=== PATIENT | female | born 1990 | race Caucasian/White ===

== ENCOUNTER → 2020-08-15 14:21 | Outpatient (BNVA) | payer OTHER, SELFPAY | PROVIDERS: PCP Internal Medicine Sports Medicine; Visit Provider Internal Medicine Gastroenterology | DX: K20.0 Eosinophilic esophagitis (principal) | CPT/HCPCS: 99202 ==

== ENCOUNTER 2020-09-08 09:13 | Day surgery (SDC) | payer OTHER, SELFPAY ==
--- NOTE | 2020-09-07 08:39 | P.CONAN_ITS ---
Documented by User: Torrie Osborne 09/07/20 08:40 HPI - Anesthesia Eval Consult details Narrative: 30yo F for Upper Endoscopy PMFSH Past Medical History Medical History Anxiety Depression Disease of Bartholin's gland, unspecified (~2014) Family History Family History Father Family history of high blood pressure Mother Family history of high blood pressure Maternal Grandfather History of esophageal cancer Surgical History Surgical History History of ankle surgery History of appendectomy (~2001) History of (~2010) History of (~2018) History of colonoscopy (~2007) Hx of breast lump removal (~2002) Hx of endoscopy Social History Social History Alcohol intake: current Alcohol intake frequency: holidays/special occasions only Smoking Status: Former smoker Use of substances other than those prescribed or required for medical reasons: No Advance Directives: No Advance Directives Information Provided: Yes Current occupational status: employed Current occupation: Works at [employer] [place] Inpatient Psyche with Dr Swanson - Addiction Medicine/substance Meds Allergies Allergy/AdvReac Type Severity Reaction Status Date / Time No Known Allergies Allergy Verified 09/08/20 09:39 [No Known Allergies*] Home Medications Medication Instructions Recorded Confirmed Type bupropion HCl 150 mg tablet,12 hr 150 mg PO DAILY 08/15/20 08/15/20 History sustained-release calcium carbonate 500 mg calcium 500 mg PO BID 08/15/20 08/15/20 History (1,250 mg) chewable tablet cholecalciferol (vitamin D3) 10 10 mcg PO DAILY 08/15/20 08/15/20 History mcg (400 unit) tablet multivitamin 1 tab PO DAILY 08/15/20 08/15/20 History omeprazole 40 mg capsule,delayed 40 mg PO DAILY 08/15/20 08/15/20 History release vortioxetine 20 mg tablet 20 mg PO DAILY 08/15/20 08/15/20 History Exam Exam Date and Time: September 07, 202039 Assessment and Plan Assessment Anesthesia Assessment: Chart Reviewed Documented by User: Jacklyn Mclaughlin 09/08/20 09:58 PMFSH Past Medical History Medical History Anxiety Depression Disease of Bartholin's gland, unspecified (~2014) Family History Family History Father Family history of high blood pressure Mother Family history of high blood pressure Maternal Grandfather History of esophageal cancer Surgical History Surgical History History of ankle surgery History of appendectomy (~2001) History of (~2010) History of (~2018) History of colonoscopy (~2007) Hx of breast lump removal (~2002) Hx of endoscopy Social History Social History Alcohol intake: current Alcohol intake frequency: holidays/special occasions only Smoking Status: Former smoker Use of substances other than those prescribed or required for medical reasons: No Advance Directives: No Advance Directives Information Provided: Yes Current occupational status: employed Current occupation: Works at [employer] [place] Inpatient Psyche with Dr Swanson - Addiction Medicine/substance Meds Allergies Allergy/AdvReac Type Severity Reaction Status Date / Time No Known Allergies Allergy Verified 09/08/20 09:39 [No Known Allergies*] Home Medications Medication Instructions Recorded Confirmed Type bupropion HCl 150 mg tablet,12 hr 150 mg PO DAILY 08/15/20 08/15/20 History sustained-release calcium carbonate 500 mg calcium 500 mg PO BID 08/15/20 08/15/20 History (1,250 mg) chewable tablet cholecalciferol (vitamin D3) 10 10 mcg PO DAILY 08/15/20 08/15/20 History mcg (400 unit) tablet multivitamin 1 tab PO DAILY 08/15/20 08/15/20 History omeprazole 40 mg capsule,delayed 40 mg PO DAILY 08/15/20 08/15/20 History release vortioxetine 20 mg tablet 20 mg PO DAILY 08/15/20 08/15/20 History Exam Airway Mallampati Class: II TM Dist: >3cm Neck ROM: Full
[2020-09-08 09:39] LABS: UPreg QC Valid YES; Urine Pregnancy NEGATIVE (NEGATIVE)
[2020-09-08 09:41] VITALS: BP 119/76; PULSE 79; RESP 18; TEMP 36.1; O2SAT 98; BMI 27.4
[2020-09-08] MEDS: Lactated Ringers 1,000 ML 100 ML IVCONT (09:57)
--- NOTE | 2020-09-08 10:00 | PM.OP ---
Brief Operative Note Date of Service: 09/08/20 Pre-op diagnosis: Dysphagia, atypical chest pain, known history of EOE Post-op diagnosis: other (Dysphagia, EOE, gastritis) Procedure: FLEXIBLE TRANSORAL UPPER GASTROINTESTINAL ENDOSCOPY WITH BIOPSIES AND ESOPHAGEAL BALLOON DILATION Consent: Indications for the procedure and potential complications of bleeding, perforation, reaction to medications and missed diagnosis were discussed with the patient and informed consent was obtained. Instrument: Olympus GIF H 190 mid size upper endoscope Monitoring: Vital signs and clinical assessment, continuous EKG monitoring, Pulse oximetry, Carbon Dioxide monitoring and blood pressure monitoring were done throughout the procedure. Procedure: The patient was placed in the left lateral decubitis position and pre-procedure medications were administered and a bite block was placed. The endoscope was inserted into the mouth and advanced under direct vision to the third part of duodenum. A careful inspection was made as the upper endoscope was withdrawn including a retroflexed examination of the proximal stomach; Findings and interventions are described below. Findings: Larynx: Normal Esophagus: GE junction at 36 cms. Mucosal changes in the mid and distal esophagus consisting of transverse folds, longitudinal ridges with scant white exudate - biopsies were obtained from proximal esophagus to follow up on EOE. Mid-size upper endoscope was passed to the esophagus with the out significant resistance. Balloon dilation of mid and distal esophagus was performed with a 15, 16.5 and 18 mm CRE balloon x 60 seconds at each level. Stomach: Mild gastric erythema. Biopsies were obtained. Grade 1 flap valve on retroflexed examination of the cardia. Duodenum: Normal bulb and descending duodenum Intervention: Biopsies as noted above Impression and Post Procedure Diagnosis: Endoscopy Findings: ESOPHAGUS: GE junction at 36 cms. Mucosal changes in the mid and distal esophagus consisting of transverse folds, longitudinal ridges with scant white exudate - biopsies were obtained from proximal esophagus to follow up on EOE. Mid-size upper endoscope was passed to the esophagus with the out significant resistance. Balloon dilation of mid and distal esophagus was performed with a 15, 16.5 and 18 mm CRE balloon x 60 seconds at each level. STOMACH: Minimal gastritis Plan: Await pathology results Patient to schedule a FU appointment in the GI Clinic with Luis Alberto Love M.D.-. Above findings were reviewed with the patient. Surgeon: Luis Alberto Love MD Anesthesia: MAC (VENEER SANDER Cuff) Estimated blood loss (mL): 0 Pathology: other (A. Gastric antrum, B. Proximal esophagus) Condition: stable Disposition: PACU
--- NOTE | 2020-09-08 10:00 | MHC.SHP ---
Pre-Procedural Eval Section A The patient is an INPATIENT: No Changes since office visit: Yes Patient answered all questions; No Cold of Flu in the past 2 weeks, No New Medical Problems and No Changes in Medication The History & Physical has been completed within 30 days and I have reviewed it.: Yes Section B Chief Complaint: eosinophilic esophagitis Allergies: Allergies Allergy/AdvReac Type Severity Reaction Status Date / Time No Known Allergies Allergy Verified 09/08/20 09:39 [No Known Allergies*] Plan I have reviewed the history and physical and performed a pertinent physical examination on my patient. No changes have occurred unless specified.
[2020-09-08 10:32] VITALS: BP 110/69; PULSE 70; RESP 18; TEMP 37.3; O2SAT 100
[2020-09-08 10:47] VITALS: BP 113/77; PULSE 81; RESP 17; TEMP 36.6; O2SAT 100
== END 2020-09-08 10:54 | disposition home or self-care (01) ==
PROVIDERS: Nurse Practitioner; PCP Internal Medicine Sports Medicine; Visit Provider Internal Medicine Gastroenterology
PROC: 0DJ08ZZ Inspection of Upper Intestinal Tract, Via Natural or Artificial Opening Endoscopic (ICD-10-PCS; CPT 43235; principal; 2020-09-08 10:40)
DX: K20.0 Eosinophilic esophagitis (principal); R13.10 Dysphagia, unspecified; R07.89 Other chest pain; K29.70 Gastritis, unspecified, without bleeding; F32.9 Major depressive disorder, single episode, unspecified; Z79.899 Other long term (current) drug therapy
CPT/HCPCS: 43249; 43239; 81025; 88305; 88342; C1726

== ENCOUNTER → 2020-09-14 07:56 | Outpatient (BNVA) | payer OTHER, SELFPAY | PROVIDERS: PCP Internal Medicine Sports Medicine; Visit Provider Internal Medicine Gastroenterology ==

== ENCOUNTER 2020-09-15 16:30 | Outpatient (REF) | payer OTHER, SELFPAY ==
[2020-09-15 17:21] LABS: MANUAL DIFF FLAG NO
[2020-09-15 17:24] LABS: Basophils Absolute Auto 0.1 X10*3/uL (0.0-0.2); Basophils Percent Auto 0.8 % (0-2); Eosinophils Absolute Auto 0.4 X10*3/uL (0.0-0.4); Eosinophils Percent Auto 6.9 % (0-4); Hematocrit 37.6 % (37-47); Hemoglobin 12.8 g/dl (12.0-16.0); Imm Gran Abs Auto 0.01 X10*3/uL (0.00-0.03); Imm Gran Pct Auto 0.2 % (0.0-0.4); Lymphocytes Absolute Auto 2.5 X10*3/uL (1.2-4.9); Lymphocytes Percent Auto 40.9 % (20-40); Mean Corpuscular Hemoglobin 32.2 pg (27.0-33.0); Mean Corpuscular Volume 94.7 fL (80-98); Monocytes Absolute Auto 0.5 X10*3/uL (0.1-1.2); Monocytes Percent Auto 7.5 % (2-11); Neutrophils Absolute Auto 2.7 X10*3/uL (2.0-8.3); Neutrophils Percent Auto 43.7 % (45-73); Platelet Count 246 X10*3/uL (160-400); Red Blood Count 3.97 X10*6/uL (4.20-5.50); Red Cell Distribution Width 11.9 % (11.0-16.0); White Blood Count 6.1 X10*3/uL (4.8-10.8)
[2020-09-15 17:52] LABS: Iron 116 mcg/dL (30-160); Percent Iron Saturation 40 % (15-50); Total Iron Binding Capacity 292 mcg/dL (228-428); Unsaturated Iron Binding 176 ug/dL
[2020-09-15 18:11] LABS: Ferritin 66 ng/mL (10-122)
[2020-09-15 18:17] LABS: Thyroid Stimulating Hormone 1.41 uIU/mL (0.32-4.0)
[2020-09-18 03:59] LABS: Vitamin B12 449 pg/mL (200-900)
== END 2020-09-15 16:31 | disposition home or self-care (01) ==
LOC: HO.LAB 16:30
PROVIDERS: Absent Provider Internal Medicine Gastroenterology; PCP Internal Medicine Sports Medicine; Visit Provider Physician Assistant Medical
DX: K20.0 Eosinophilic esophagitis (principal); R22.1 Localized swelling, mass and lump, neck
CPT/HCPCS: 36415; 82607; 82728; 82746; 83540; 84443; 85025

== ENCOUNTER 2020-09-19 12:56 | Outpatient (REF) | payer OTHER, SELFPAY ==
--- NOTE | ~2020-09-19 | US_ITS ---
EXAMINATION: US SOFT TISSUE OF THE NECK CLINICAL INFORMATION: Lump right side of neck. COMPARISON: None TECHNIQUE: Linear transducer grayscale and color Doppler examination of the right side of neck submandibular area. FINDINGS: Imaging to the right submandibular region reveals a homogeneous texture right submandibular gland. There are multiple small hypoechoic lymph nodes. The largest lymph node in the right submandibular space measures 0.98 x 0.54 cm. There are additional smaller lymph nodes which measure 0.7 cm. US/US soft tiss head and/or neck IMPRESSION: Multiple small lymph nodes in the right submandibular space. No focal mass seen. The submandibular gland is unremarkable.
== END 2020-09-19 12:57 | disposition home or self-care (01) ==
LOC: HO.US 12:56
PROVIDERS: Visit Provider Physician Assistant Medical
DX: R22.1 Localized swelling, mass and lump, neck (principal)
CPT/HCPCS: 76536

== ENCOUNTER 2020-10-13 11:28 | Outpatient (REF) | payer OTHER, SELFPAY ==
[2020-10-13 12:48] LABS: MANUAL DIFF FLAG NO
[2020-10-13 12:53] LABS: Basophils Percent Auto 0.9 % (0-2); Eosinophils Absolute Auto 0.3 X10*3/uL (0.0-0.4); Hemoglobin 12.9 g/dl (12.0-16.0); Lymphocytes Absolute Auto 1.9 X10*3/uL (1.2-4.9); Lymphocytes Percent Auto 40.3 % (20-40); Mean Corpuscular HGB Conc 33.9 g/dl (31.0-35.0); Mean Corpuscular Hemoglobin 31.7 pg (27.0-33.0); Mean Corpuscular Volume 93.4 fL (80-98); Mean Platelet Volume 9.3 fL (9.4-12.3); Monocytes Absolute Auto 0.4 X10*3/uL (0.1-1.2); Monocytes Percent Auto 9.2 % (2-11); Neutrophils Percent Auto 43.6 % (45-73); Platelet Count 239 X10*3/uL (160-400); Red Blood Count 4.07 X10*6/uL (4.20-5.50); Red Cell Distribution Width 12.5 % (11.0-16.0); White Blood Count 4.7 X10*3/uL (4.8-10.8)
[2020-10-14 08:12] LABS: Immunoglobulin E 37 kU/L (<OR=114)
== END 2020-10-13 11:29 | disposition home or self-care (01) ==
LOC: HO.LAB 11:28
PROVIDERS: PCP Internal Medicine Sports Medicine; Visit Provider Allergy & Immunology
DX: K20.0 Eosinophilic esophagitis (principal)
CPT/HCPCS: 36415; 82785; 85025; 86003

== ENCOUNTER 2020-12-12 06:39 | Day surgery (SDC) | payer OTHER, SELFPAY ==
[2020-12-06 15:19] VITALS: BMI 27.6
--- NOTE | 2020-12-11 08:21 | P.CONAN_ITS ---
Documented by User: Torrie Osborne 12/11/20 08:23 HPI - Anesthesia Eval Consult details Narrative: 30yo F for Upper Endoscopy S/P EGD with MAC 08/2020 [facility] Active Problems Active Problems: All Active Problems (Updated 09/01/20 @ 14:06 by Luis Alberto Love MD) Eosinophilic esophagitis (Acute) Hand eczema (Acute) Chest pain, atypical (Acute) Past Medical History Medical History Anxiety Depression Disease of Bartholin's gland, unspecified (~2014) Eosinophilic esophagitis Family History Family History Father Family history of high blood pressure Mother Family history of high blood pressure Maternal Grandfather History of esophageal cancer Surgical History Surgical History History of ankle surgery History of appendectomy (~2001) History of (~2010) History of (~2018) History of colonoscopy (~2007) History of esophagogastroduodenoscopy (EGD) Hx of breast lump removal (~2002) Hx of endoscopy Social History Social History Household Members: Spouse and Children Alcohol intake: current Alcohol intake frequency: holidays/special occasions only Smoking Status: Former smoker Are you DNR?: No Advance Directives: No Advance Directives Information Provided: No Advance Directives on File: No Patient : No FDLMP: unknown : Yes Current occupational status: employed Current occupation: Works at [employer] [place] Inpatient Psyche with Dr Swanson - Addiction Med icine/substance Meds Allergies Allergy/AdvReac Type Severity Reaction Status Date / Time No Known Allergies Allergy Verified 12/12/20 06:53 [No Known Allergies*] Home Medications Medication Instructions Recorded Confirmed Last Taken Type calcium carbonate 500 mg calcium 500 mg PO BID 08/15/20 09/14/20 Unknown History (1,250 mg) chewable tablet cholecalciferol (vitamin D3) 10 10 mcg PO DAILY 08/15/20 09/14/20 Unknown History mcg (400 unit) tablet multivitamin 1 tab PO DAILY 08/15/20 09/14/20 Unknown History omeprazole 40 mg capsule,delayed 40 mg PO DAILY 0112/11/20 12/12/20 05:30 History release bupropion HCl 1 tab PO QAM 12/11/20 12/11/20 12/12/20 05:30 History vortioxetine [Trintellix] 1 tab PO QAM 12/11/20 12/11/20 Unknown History Exam Exam Date and Time: December 11, 2020 0821 Height,Weight and Vital Signs: Height 5 ft 5 in Weight 75.296 kg Assessment and Plan Assessment Anesthesia Assessment: Chart Reviewed Documented by User: Jeannine Rangel 12/12/20 07:41 PMFSH Past Medical History Medical History Anxiety Depression Disease of Bartholin's gland, unspecified (~2014) Eosinophilic esophagitis Family History Family History Father Family history of high blood pressure Mother Family history of high blood pressure Maternal Grandfather History of esophageal cancer Surgical History Surgical History History of ankle surgery History of appendectomy (~2001) History of (~2010) History of (~2018) History of colonoscopy (~2007) History of esophagogastroduodenoscopy (EGD) Hx of breast lump removal (~2002) Hx of endoscopy Social History Social History Household Members: Spouse and Children Alcohol intake: current Alcohol intake frequency: holidays/special occasions only Smoking Status: Former smoker Are you DNR?: No Advance Directives: No Advance Directives Information Provided: No Advance Directives on File: No Patient : No FDLMP: unknown : Yes Current occupational status: employed Current occupation: Works at [employer] [facility] [place] Inpatient Psyche with Dr Swanson - Addiction Medicine/substance Meds Allergies Allergy/AdvReac Type Severity Reaction Status Date / Time No Known Allergies Allergy Verified 12/12/20 06:53 [No Known Allergies*] Home Medications Medication Instructions Recorded Confirmed Last Taken Type calcium carbonate 500 mg calcium 500 mg PO BID 08/15/20 09/14/20 Unknown History (1,250 mg) chewable tablet cholecalciferol (vitamin D3) 10 10 mcg PO DAILY 08/15/20 09/14/20 Unknown History mcg (400 unit) tablet multivitamin 1 tab PO DAILY 08/15/20 09/14/20 Unknown History omeprazole 40 mg capsule,delayed 40 mg PO DAILY 08/15/20 12/11/20 12/12/20 05:30 History release bupropion HCl 1 tab PO QAM 12/11/20 12/11/20 12/12/20 05:30 History vortioxetine [Trintellix] 1 tab PO QAM 12/11/20 12/11/20 Unknown History Exam Airway Mallampati Class: I TM Dist: >3cm Neck ROM: Full Loose/Missing/Broken Teeth: No Heart: RRR Lungs: CTA Assessment and Plan Assessment Anesthesia Assessment: Anesthesia Plan Discussed and Chart Reviewed Final Anesthetic Review NPO: Yes ASA Class: II Final Preanesthetic Review: Meds/Allgs Chart Reviewed, Consent Obtained/Reviewed and Anes Risks/Benef Reviewed Patient Risk: Low Procedure Risk: Intermediate Anesthetic Plan Anesthetic Plan: MAC: Disposition: Standard PACU
[2020-12-11 10:58] VITALS: BMI 25.0
[2020-12-12 06:54] VITALS: BP 124/85; PULSE 77; RESP 18; TEMP 36.8; O2SAT 98
[2020-12-12 06:56] LABS: UPreg QC Valid YES; Urine Pregnancy NEGATIVE (NEGATIVE)
[2020-12-12] MEDS: Lactated Ringers 1,000 ML 100 ML IVCONT (07:09)
--- NOTE | 2020-12-12 07:15 | W.PM.OPN ---
Operative Note Operative Note Date of Service: 12/12/20 Narrative: Pre-op diagnosis: Dysphagia, FU of EOE, atypical chest pain Post-op diagnosis: same Procedure: FLEXIBLE TRANSORAL UPPER GASTROINTESTINAL ENDOSCOPY WITH BIOPSIES AND ESOPHAGEAL BALLOON DILATION Consent: Indications for the procedure and potential complications of bleeding, perforation, reaction to medications and missed diagnosis were discussed with the patient and informed consent was obtained. Instrument: Olympus GIF H 190 mid size upper endoscope Monitoring: Vital signs and clinical assessment, continuous EKG monitoring, Pulse oximetry, Carbon Dioxide monitoring and blood pressure monitoring were done throughout the procedure. Procedure: The patient was placed in the left lateral decubitis position and pre-procedure medications were administered and a bite block was placed. The endoscope was inserted into the mouth and advanced under direct vision to the third part of duodenum. A careful inspection was made as the upper endoscope was withdrawn including a retroflexed examination of the proximal stomach; Findings and interventions are described below. Findings: Larynx: Normal Esophagus: GE junction at 38 cms. Mid-size upper endoscope was passed to the esophagus with the out significant resistance. Mucosal changes noted in the mid and distal esophagus (transverse folds, longitudinal ridges with scant white exudate) appeared to have resolved - biopsies were obtained from proximal esophagus to follow up on EOE. Balloon dilation of mid and distal esophagus was performed with a 18, 19 and 20 mm CRE balloon x 60 seconds at each level. Stomach: Normal appearing gastric mucosa. Grade 1 flap valve on retroflexed examination of the cardia. Duodenum: Normal bulb and descending duodenum Intervention: Biopsies and esophageal balloon dilation as noted above Impression and Post Procedure Diagnosis: Endoscopy Findings: ESOPHAGUS: Mid-size upper endoscope was passed through the esophagus without significant resistance. Mucosal changes in the mid and distal esophagus appear to have resolved - biopsies were obtained from proximal esophagus to follow up on EOE. Balloon dilation of mid and distal esophagus was performed with a 15, 16.5 and 18 mm CRE balloon x 60 seconds at each level. Plan: Await pathology results. Pt finished taking Fluticasone a few days ago. She reports resolution of dysphagia and notes occasional chest pain which resolves with dicyclomine. Patient has an appointment on 01/25/21 in the GI Clinic with Savannah Swift. Above findings were reviewed with the patient Surgeon: Luis Alberto Love MD Anesthesia: MAC (Dara Shepard CRNA) Was an Channel Marketing Coordinator used for this Procedure?: No Channel Marketing Coordinator: Constantino Mckenzie Estimated blood loss (mL): 0 Pathology: other (A- PROXIMAL ESOPHAGUS BXS F/U EOE) Condition: stable Disposition: PACU
--- NOTE | 2020-12-12 07:15 | MHC.SHP ---
Pre-Procedural Eval Section A The patient is an INPATIENT: No The History & Physical has been completed within 30 days and I have reviewed it.: No Section B Chief Complaint: epigastric pain Details of Present Illness: Dysphagia, atypical chest pain, follow-up of EOE Relevant Family History (Specify if Yes): Yes Relevant Social History: Tobacco Use (past smoker) Present Medications: see Short Stay Collaborative assessment Medical History: Significant History (Anxiety Depression Disease of Bartholin's gland, unspecified (~2014)) History of Previous Operations: Relevant previous surgery/procedure and date(s) (History of ankle surgery History of appendectomy (~2001) History of (~2010) History of (~2018) History of colonoscopy (~2007) Hx of breast lump removal (~2002) Hx of endoscopy) Allergies: Allergies Allergy/AdvReac Type Severity Reaction Status Date / Time No Known Allergies Allergy Verified 12/12/20 06:53 [No Known Allergies*] Review of Systems Sugical H&P ROS: Negative: Constitution, Cardiovascular and Respiratory and Yes, Specify: Gastrointestinal (Dysphagia, atypical chest pain) Exam Surgical H&P Exam: Normal: Heart, Normal: Lungs, Normal: Extremities and Normal: Abdomen Plan Diagnosis/Plan: Unchanged I have reviewed the history and physical and performed a pertinent physical examination on my patient. No changes have occurred unless specified.
[2020-12-12 08:02] VITALS: BP 94/47; PULSE 71; RESP 16; TEMP 36.8; O2SAT 98
[2020-12-12 08:18] VITALS: BP 108/66; PULSE 78; RESP 16; TEMP 36.8; O2SAT 100
== END 2020-12-12 09:15 | disposition home or self-care (01) ==
PROVIDERS: Nurse Practitioner; PCP Internal Medicine Sports Medicine; Visit Provider Internal Medicine Gastroenterology
PROC: 0DJ08ZZ Inspection of Upper Intestinal Tract, Via Natural or Artificial Opening Endoscopic (ICD-10-PCS; CPT 43235; principal; 2020-12-12 07:30)
DX: K20.0 Eosinophilic esophagitis (principal); R13.10 Dysphagia, unspecified; R07.89 Other chest pain; F32.9 Major depressive disorder, single episode, unspecified; Z87.891 Personal history of nicotine dependence; Z79.899 Other long term (current) drug therapy
CPT/HCPCS: 43249; 43239; 81025; 88305; C1726; J3010

== ENCOUNTER 2021-03-20 12:57 | Day surgery (SDC) | payer OTHER, SELFPAY ==
[2021-03-14 09:45] VITALS: BMI 27.6
--- NOTE | 2021-03-19 10:13 | HO.ANESPROP2 ---
Documented by User: Torrie Osborne 03/19/21 10:13 HPI - Anesthesia Eval Consult details Narrative: 30yo F for Upper Endoscopy S/P EGD with MAC 12/2020 [facility] Active Problems Active Problems: All Active Problems (Updated 12/11/20 @ 08:22 by Torrie Osborne) Hand eczema (Acute) Chest pain, atypical (Acute) Eosinophilic esophagitis (Acute) Past Medical History Medical History Anxiety Depression Disease of Bartholin's gland, unspecified (~2014) Eosinophilic esophagitis Family History Family History Father Family history of high blood pressure Mother Family history of high blood pressure Maternal Grandfather History of esophageal cancer Surgical History Surgical History History of ankle surgery History of appendectomy (~2001) History of (~2010) History of (~2018) History of colonoscopy (~2007) History of esophagogastroduodenoscopy (EGD) Hx of breast lump removal (~2002) Hx of endoscopy Social History Social History Household Members: Spouse and Children Alcohol intake: current Alcohol intake frequency: holidays/special occasions only Patient Tobacco Use Status: Former Tobacco user Quit Date: 6 yrs ago Use of substances other than those prescribed or required for medical reasons: No Are you DNR?: No Advance Directives: No Advance Directives Information Provided: Yes Current occupational status: employed Current occupation: Works at [employer] [place] Inpatient Psyche with Dr Swanson - Addiction Medicine/substance Meds Allergies Allergy/AdvReac Type Severity Reaction Status Date / Time No Known Allergies Allergy Verified 03/20/21 13:05 [No Known Allergies*] Home Medications Medication Instructions Recorded Confirmed Last Taken Type calcium carbonate 500 mg calcium 500 mg PO BID 08/15/20 03/14/21 Unknown History (1,250 mg) chewable tablet (Calcium 500) cholecalciferol (vitamin D3) 10 10 mcg PO DAILY 08/15/20 03/14/21 Unknown History mcg (400 unit) tablet multivitamin 1 tab PO DAILY 08/15/20 03/14/21 Unknown History omeprazole 40 mg capsule,delayed 40 mg PO DAILY 08/15/20 03/14/21 12/12/20 05:30 History release bupropion HCl 300 mg 24 hr tablet, 1 tab PO QAM 12/11/20 03/14/21 03/20/21 06:00 History extended release vortioxetine 20 mg tablet 1 tab PO QAM 12/11/20 03/14/21 03/20/21 06:00 History (Trintellix) Exam Exam Date and Time: March 19, 2021 1013 Height,Weight and Vital Signs: Height 5 ft 5 in Weight 75.466 kg Assessment and Plan Assessment Anesthesia Assessment: Chart Reviewed Documented by User: Jeannine Rangel MD 03/20/21 13:32 [facility] Past Medical History Medical History Anxiety Depression Disease of Bartholin's gland, unspecified (~2014) Eosinophilic esophagitis Functional capacity: wheelchair bound Family History Family History Father Family history of high blood pressure Mother Family history of high blood pressure Maternal Grandfather History of esophageal cancer Surgical History Surgical History History of ankle surgery History of appendectomy (~2001) History of (~2010) History of (~2018) History of colonoscopy (~2007) History of esophagogastroduodenoscopy (EGD) Hx of breast lump removal (~2002) Hx of endoscopy History of Problems with Anesthesia: No Social History Social History Household Members: Spouse and Children Alcohol intake: current Alcohol intake frequency: holidays/special occasions only Patient Tobacco Use Status: Former Tobacco user Quit Date: 6 yrs ago Use of substances other than those prescribed or required for medical reasons: No Are you DNR?: No Advance Directives: No Advance Directives Information Provided: Yes Current occupational status: employed Current occupation: Works at [employer] [facility] [place] Inpatient Psyche with Dr Swanson - Addiction Medicine/substance Meds Allergies Allergy/AdvReac Type Severity Reaction Status Date / Time No Known Allergies Allergy Verified 03/20/21 13:05 [No Known Allergies*] Home Medications Medication Instructions Recorded Confirmed Last Taken Type calcium carbonate 500 mg calcium 500 mg PO BID 08/15/20 03/14/21 Unknown History (1,250 mg) chewable tablet (Calcium 500) cholecalciferol (vitamin D3) 10 10 mcg PO DAILY 08/15/20 03/14/21 Unknown History mcg (400 unit) tablet multivitamin 1 tab PO DAILY 08/15/20 03/14/21 Unknown History omeprazole 40 mg capsule,delayed 40 mg PO DAILY 08/15/20 03/14/21 12/12/20 05:30 History release bupropion HCl 300 mg 24 hr tablet, 1 tab PO QAM 12/11/20 03/14/21 03/20/21 06:00 History extended release vortioxetine 20 mg tablet 1 tab PO QAM 12/11/20 03/14/21 03/20/21 06:00 History (Trintellix) Exam Airway Mallampati Class: I TM Dist: >3cm Neck ROM: Full Loose/Missing/Broken Teeth: No Heart: RRR Lungs: CTA Assessment and Plan Assessment Anesthesia Assessment: Anesthesia Plan Discussed Final Anesthetic Review History of Problems with Anesthesia: No NPO: Yes ASA Class: II Final Preanesthetic Review: Meds/Allgs Chart Reviewed, Consent Obtained/Reviewed and Anes Risks/Benef Reviewed Patient Risk: Low Procedure Risk: Intermediate Anesthetic Plan Anesthetic Plan: MAC: Disposition: Standard PACU
[2021-03-20 13:15] VITALS: BP 139/85; PULSE 74; RESP 16; TEMP 36.9; O2SAT 99
[2021-03-20 13:24] LABS: UPreg QC Valid YES; Urine Pregnancy NEGATIVE (NEGATIVE)
[2021-03-20] MEDS: Lactated Ringers 1,000 ML 100 ML IVCONT (13:33)
--- NOTE | 2021-03-20 13:46 | MHC.SHP ---
Pre-Procedural Eval Section A Date of Service: 03/20/21 The patient is an INPATIENT: No The History & Physical has been completed within 30 days and I have reviewed it.: No Section B Chief Complaint: epigastric pain Details of Present Illness: FU of dysphagia and EOE Relevant Social History: Tobacco Use (former smoker) Present Medications: see Short Stay Collaborative assessment Medical History: Significant History (Anxiety Depression Disease of Bartholin's gland, unspecified (~2014)) History of Previous Operations: Relevant previous surgery/procedure and date(s) (History of ankle surgery History of appendectomy (~2001) History of (~2010) History of (~2018) History of colonoscopy (~2007) Hx of breast lump removal (~2002) Hx of endoscopy) Allergies: Allergies Allergy/AdvReac Type Severity Reaction Status Date / Time No Known Allergies Allergy Verified 03/20/21 13:05 [No Known Allergies*] Review of Systems Sugical H&P ROS: Negative: Constitution, Cardiovascular, Respiratory and Gastrointestinal Exam Surgical H&P Exam: Normal: Heart, Normal: Lungs, Normal: Extremities and Normal: Abdomen Plan Diagnosis/Plan: Change (Repeat EGD to fu on EOE) I have reviewed the history and physical and performed a pertinent physical examination on my patient. No changes have occurred unless specified.
--- NOTE | 2021-03-20 13:53 | PM.OP ---
Brief Operative Note Date of Service: 03/20/21 Pre-op diagnosis: FU of EOE. Pt completed induction therapy with viscous budesonide 1 week ago. 1 mg/day twice daily. Swallow oral budesonide viscous liquid/suspension slowly over 5 to 10 minutes. 4 weeks with 3 refills Post-op diagnosis: same Procedure: FLEXIBLE TRANSORAL UPPER GASTROINTESTINAL ENDOSCOPY WITH BIOPSIES Consent: Indications for the procedure and potential complications of bleeding, perforation, reaction to medications and missed diagnosis were discussed with the patient and informed consent was obtained. Instrument: Olympus GIF H 190 mid size upper endoscope Monitoring: Vital signs and clinical assessment, continuous EKG monitoring, Pulse oximetry, Carbon Dioxide monitoring and blood pressure monitoring were done throughout the procedure. Procedure: The patient was placed in the left lateral decubitis position and pre-procedure medications were administered and a bite block was placed. The endoscope was inserted into the mouth and advanced under direct vision to the third part of duodenum. A careful inspection was made as the upper endoscope was withdrawn including a retroflexed examination of the proximal stomach; Findings and interventions are described below. Findings: Larynx: Normal Esophagus: GE junction at 38 cms.? Mid-size upper endoscope was passed to the esophagus with the out significant resistance.? Mucosal changes noted in the mid and distal esophagus (transverse folds, longitudinal ridges with scant white exudate) appeared to have resolved - biopsies were obtained from proximal esophagus to follow up on EOE. Stomach: Normal appearing gastric mucosa. Grade 2 flap valve on retroflexed examination of the cardia. . Duodenum: Normal bulb and descending duodenum Intervention: Biopsies as noted above Impression and Post Procedure Diagnosis: Endoscopy Findings: ESOPHAGUS: Mid-size upper endoscope was passed to the esophagus with the out significant resistance.? Mucosal changes noted in the mid and distal esophagus (transverse folds, longitudinal ridges with scant white exudate) appeared to have resolved - biopsies were obtained from proximal esophagus to follow up on EOE. Plan: Await pathology results Patient has an appointment on 03/29/21 in the GI Clinic with Savannah Swift. Above findings were reviewed with the patient. Surgeon: Luis Alberto Love MD Anesthesia: MAC (Mariaelena Pedro CRNA) Was an Customer Solutions Representative used for this Procedure?: Yes Customer Solutions Representative: Malou Ochoa Estimated blood loss (mL): 0 Pathology: other (A. PROXIMAL ESOPHAGUS F/U EOE) Condition: stable Disposition: PACU
[2021-03-20 14:12] VITALS: BP 102/56; PULSE 75; RESP 14; TEMP 36.5; O2SAT 98
[2021-03-20 14:27] VITALS: BP 102/56; PULSE 71; RESP 16; O2SAT 100
[2021-03-20 14:42] VITALS: BP 123/83; PULSE 70; RESP 16; O2SAT 100
[2021-03-20 14:56] VITALS: BP 122/84; PULSE 69; RESP 16; O2SAT 100
--- NOTE | 2021-03-25 18:24 | W.PM.OPN ---
Operative Note Operative Note Date of Service: 03/20/21 Narrative: Pre-op diagnosis:?FU of EOE.? Pt completed induction therapy with viscous budesonide 1 week ago. 1 mg/day twice daily.? Swallow oral budesonide viscous liquid/suspension slowly over 5 to 10 minutes.? 4 weeks with 3 refills Post-op diagnosis:?same Procedure:? FLEXIBLE TRANSORAL UPPER GASTROINTESTINAL ENDOSCOPY WITH BIOPSIES Consent:?Indications for the procedure and potential complications of bleeding, perforation, reaction to medications and missed diagnosis were discussed with the patient and informed consent was obtained. Instrument:?Olympus GIF H 190 mid size upper endoscope Monitoring: Vital signs and clinical assessment, continuous EKG monitoring, Pulse oximetry, Carbon Dioxide monitoring and blood pressure monitoring were done throughout the procedure. Procedure:?The patient was placed in the left lateral decubitis position and pre-procedure medications were administered and a bite block was placed. The endoscope was inserted into the mouth and advanced under direct vision to the third part of duodenum. A careful inspection was made as the upper endoscope was withdrawn including a retroflexed examination of the proximal stomach; Findings and interventions are described below. Findings: Larynx:? Normal Esophagus:?GE junction at 38 cms.? Mid-size upper endoscope was passed to the esophagus with the out significant resistance.? Mucosal changes noted in the mid and distal esophagus (transverse folds, longitudinal ridges with scant white exudate) appeared to have resolved - biopsies were obtained from proximal esophagus to follow up on EOE. Stomach:?Normal appearing gastric mucosa. Grade 2 flap valve on retroflexed examination of the cardia. . Duodenum:?Normal bulb and descending duodenum Intervention:?Biopsies as noted above Impression and Post Procedure Diagnosis: Endoscopy Findings: ESOPHAGUS:??Mid-size upper endoscope was passed to the esophagus with the out significant resistance.? Mucosal changes noted in the mid and distal esophagus (transverse folds, longitudinal ridges with scant white exudate) appeared to have resolved - biopsies were obtained from proximal esophagus to follow up on EOE. Plan: Await pathology results Patient has an appointment on 03/29/21 in the GI Clinic with Luis Alberto Love M.D.-. Above findings were reviewed with the patient. Surgeon:?Luis Alberto Love MD Anesthesia:?JESSICA (Mariaelena Pedro CRNA) Was an Commercial Stripper used for this Procedure?:?Yes Commercial Stripper:?Malou Ochoa Estimated blood loss (mL):?0 Pathology:?other (A. PROXIMAL ESOPHAGUS F/U EOE) Condition:?stable Disposition:?PACU
== END 2021-03-20 15:30 | disposition home or self-care (01) ==
PROVIDERS: Nurse Practitioner; PCP Internal Medicine Sports Medicine; Visit Provider Internal Medicine Gastroenterology
PROC: 0DJ08ZZ Inspection of Upper Intestinal Tract, Via Natural or Artificial Opening Endoscopic (ICD-10-PCS; CPT 43235; principal; 2021-03-20 14:10)
DX: R10.13 Epigastric pain (principal); F32.9 Major depressive disorder, single episode, unspecified; Z87.19 Personal history of other diseases of the digestive system; Z79.899 Other long term (current) drug therapy; Z87.891 Personal history of nicotine dependence
CPT/HCPCS: 43239; 81025; 88305

== ENCOUNTER 2021-06-15 07:23 | Outpatient (REF) | payer OTHER, SELFPAY ==
--- NOTE | ~2021-06-15 | MR_ITS ---
EXAMINATION: MRI NECK WITHOUT AND WITH CONTRAST CLINICAL INFORMATION: Calcified stylohyoid ligament. Cannot exclude mass of the parotid. COMPARISON: No relevant prior imaging. TECHNIQUE: Multiplanar MR imaging of the neck was performed without and with contrast. A total of 6 mL Gadavist was utilized for this examination. FINDINGS: Osseous anatomy is not well assessed on this examination due to inherent limitations of MR. There appears to be an asymmetrically enlarged and right stylohyoid ligament measuring approximately 5 cm in length. Otherwise no identifiable enhancing soft tissue mass within the right parotid space or parapharyngeal fat. There are no pathologically enlarged cervical lymph nodes. Pharyngeal mucosal spaces are symmetric. Back Wedger spaces are symmetric. The parotid and submandibular glands are normal. The tongue base and epiglottis are normal. Preepiglottic fat is preserved. Glottic and subglottic airways are patent. There is degenerative spondylosis at C6-C7. A bulging disc in conjunction with relatively subtle buckling of the ligamenta flava at this level causing mild canal stenosis. No cord compression or abnormal intramedullary signal changes. Limited visualization of intracranial anatomy reveals no abnormal finding. MR/MR orbits face neck wo/w con IMPRESSION: Osseous anatomy is not well assessed on this examination due to inherent limitations of MRI. The right stylohyoid ligament appears asymmetrically elongated measuring up to 5 cm in length. Otherwise no identifiable soft tissue mass or adenopathy.
== END 2021-06-15 07:24 | disposition home or self-care (01) ==
LOC: HO.MRI 07:23
PROVIDERS: Visit Provider Dentist Oral and Maxillofacial Surgery
DX: D10.30 Benign neoplasm of unspecified part of mouth (principal)
CPT/HCPCS: 70543; A9585

== ENCOUNTER 2021-09-13 14:28 | Outpatient (REF) | payer OTHER, SELFPAY ==
[2021-09-13 16:07] LABS: Appearance Urine CLEAR; Color Urine YELLOW; Glucose Urine UA NEG (NEG); Leukocyte Esterase Urine NEG (NEG); Nitrite Urine NEG (NEG); PH 5.5 (5.0-8.0); Urine Blood NEG (NEG); Urine Ketones NEG (NEG); Urine Protein NEG (NEG-TRACE)
== END 2021-09-13 14:29 | disposition home or self-care (01) ==
LOC: HO.LAB 14:28
PROVIDERS: Visit Provider Obstetrics & Gynecology
DX: R39.9 Unspecified symptoms and signs involving the genitourinary system (principal)
CPT/HCPCS: 81003; 87086; 87147

== ENCOUNTER 2021-09-14 08:37 | Emergency (ER) | payer OTHER, SELFPAY ==
--- NOTE | ~2021-09-14 | CT_ITS ---
EXAMINATION: CT ABDOMEN AND PELVIS WITH CONTRAST CLINICAL INFORMATION: Severe lower abdominal pain status post LEEP yesterday. History of IUD. COMPARISON: None TECHNIQUE: Multidetector volumetric images were obtained from the superior aspect of the liver through the pubic symphysis following administration 85 mL of Omnipaque 350 intravenous contrast. Sagittal and coronal reformatted images were obtained on the technologist's workstation. This CT examination was performed using dose optimization techniques as appropriate, variously including the following: *Automated exposure control *Adjustment of mA and/or kV according to patient size (this includes techniques or standardized protocols for targeted exams where dose is matched to indication/reason for exam; i.e. extremities or head) *Use of iterative reconstruction technique DLP: 440 mGy-cm FINDINGS: Visualized lung bases are well aerated. The liver demonstrates normal size, contour and attenuation. The gallbladder is normal in appearance. The pancreas, spleen and adrenal glands are unremarkable. Symmetrically enhancing kidneys. There is no hydronephrosis bilaterally. The stomach is decompressed. Normal caliber loops of small and large bowel. The appendix is not clearly visualized although there are suspected surgical changes of the cecum likely representing appendectomy changes. Normal caliber abdominal aorta. No gross retroperitoneal lymphadenopathy. The bladder is normal in appearance. IUD appears properly positioned within an anteverted uterus. There is a 1.7 cm left adnexal hypodense lesion and a 1.6 cm right adnexal hypodense lesion which either represent small cysts or dominant follicles. Small amount of free pelvic fluid is nonspecific but often times physiologic. There is no inguinal lymphadenopathy. No acute osseous abnormality. Sclerotic changes of the bilateral bilateral sacroiliac joints, more primarily involving the ileum and more prominent on the right, nonspecific but most suggestive of sacroiliitis. CT/CT abdomen pelvis w con IMPRESSION: There is no CT evidence for acute abnormality within the abdomen or pelvis. Fleischner guidelines were followed.
--- NOTE | ~2021-09-14 | US_ITS ---
EXAMINATION: US PELVIS CLINICAL INFORMATION: Severe right lower abdominal pain. Post LEEP COMPARISON: CT abdomen and pelvis 09/14/2021 TECHNIQUE: Ultrasound of the pelvis is performed using both transabdominal and transvaginal transducers along with Doppler. Transvaginal imaging is performed due to inadequate visualization transabdominally. FINDINGS: Uterus: The uterus is anteverted, anteflexed and measures 7.7 cm in length, 2.7 seen AP and 1.8 cm in transverse dimension. IUD in the endometrial canal in good position. The uterus is smooth in contour and has normal myometrial echogenicity. No visible fibroid. Adnexa: Both ovaries are visualized. There is normal color flow to the adnexa. There is no ovarian torsion. There is no pelvic ascites or fluid collection. Right ovary measures 2.9 x 2.7 x 1.8 cm and volume 7.4 mL. There are small follicular cysts with a dominant cyst measuring 1.5 x 1.2 x 1.7 cm. Left ovary measures 3.0 x 3.0 x 3.0 cm and volume 14.1 mL. There is anechoic cyst measuring 2.0 x 1.7 x 2.0 cm.. There to suggest small echogenic areas within the left ovary question calcifications There is a small amount of free fluid in the cul-de-sac. US/US pelvic ovarian doppler IMPRESSION: Anteflexed anteverted uterus without focal lesion. IUD is in correct position within the endometrial cavity. Bilateral ovarian cysts. There are 2 echogenic areas in the left ovary question calcifications. There is a punctate calcification seen in the left ovary.
--- NOTE | ~2021-09-14 | US_ITS ---
EXAMINATION: US PELVIS CLINICAL INFORMATION: Severe right lower abdominal pain. Post LEEP COMPARISON: CT abdomen and pelvis 09/14/2021 TECHNIQUE: Ultrasound of the pelvis is performed using both transabdominal and transvaginal transducers along with Doppler. Transvaginal imaging is performed due to inadequate visualization transabdominally. FINDINGS: Uterus: The uterus is anteverted, anteflexed and measures 7.7 cm in length, 2.7 seen AP and 1.8 cm in transverse dimension. IUD in the endometrial canal in good position. The uterus is smooth in contour and has normal myometrial echogenicity. No visible fibroid. Adnexa: Both ovaries are visualized. There is normal color flow to the adnexa. There is no ovarian torsion. There is no pelvic ascites or fluid collection. Right ovary measures 2.9 x 2.7 x 1.8 cm and volume 7.4 mL. There are small follicular cysts with a dominant cyst measuring 1.5 x 1.2 x 1.7 cm. Left ovary measures 3.0 x 3.0 x 3.0 cm and volume 14.1 mL. There is anechoic cyst measuring 2.0 x 1.7 x 2.0 cm.. There to suggest small echogenic areas within the left ovary question calcifications There is a small amount of free fluid in the cul-de-sac. US/US pelvic and transvaginal IMPRESSION: Anteflexed anteverted uterus without focal lesion. IUD is in correct position within the endometrial cavity. Bilateral ovarian cysts. There are 2 echogenic areas in the left ovary question calcifications. There is a punctate calcification seen in the left ovary.
[2021-09-14 08:39] VITALS: BP 121/60; PULSE 72; RESP 18; TEMP 37.3; O2SAT 100; BMI 23.4
--- NOTE | 2021-09-14 08:44 | ED_ITS ---
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 Time Seen by Provider: 09/14/21 08:44 Source: patient Mode of arrival: ambulatory Limitations: no limitations History of Present Illness MD elicited complaint: abdominal pain Pertinent past history: other (had LEEP 2 days ago - has IUD, pain during retraction of cervix ) Onset (ago): day(s) Pain Consistency: constant Location: RLQ and pelvis Severity: moderate Quality: sharp Radiation: back Migration to: no migration Exacerbating factors: movement Relieving factors: nothing Context: other (started during LEEP procedure - has been rotating tylenol and motrin hurts to walk feels weak and nauseated) Associated symptoms: nausea, anorexia and other (no vaginal bleeding, pos dysuria) Treatments prior to arrival: NSAIDs Related Data Home Medications Medication Instructions Recorded Confirmed calcium carbonate 500 mg calcium 500 mg PO BID 08/15/20 03/14/21 (1,250 mg) chewable tablet (Calcium 500) cholecalciferol (vitamin D3) 10 10 mcg PO DAILY 08/15/20 03/14/21 mcg (400 unit) tablet multivitamin 1 tab PO DAILY 08/15/20 03/14/21 omeprazole 40 mg capsule,delayed 40 mg PO DAILY 08/15/20 03/14/21 release bupropion HCl 300 mg 24 hr tablet, 1 tab PO QAM 12/11/20 03/14/21 extended release vortioxetine 20 mg tablet 1 tab PO QAM 12/11/20 03/14/21 (Trintellix) Previous Rx's Medication Instructions Recorded calcium carbonate 600 mg-vitamin See Rx Instructions PO .COMPLEX 30 08/15/20 D3 12.5 mcg (500 unit) capsule Days #30 cap (Calcium 600 with Vitamin D3) fluticasone propionate 220 1 puff INHALATION TID 30 Days #12 09/14/20 g mcg/actuation HFA aerosol inhaler dicyclomine 20 mg tablet 20 mg PO TID 30 Days #90 tab 09/26/20 cyclobenzaprine 10 mg tablet 10 mg PO TID PRN #20 tab 09/14/21 nitrofurantoin 100 mg PO BID 5 Days #10 cap 09/14/21 monohydrate/macrocrystals 100 mg capsule (Macrobid) ondansetron 4 mg disintegrating 4 mg PO Q8H PRN #20 tab 09/14/21 tablet Allergies Allergy/AdvReac Type Severity Reaction Status Date / Time No Known Allergies Allergy Verified 03/20/21 13:05 [No Known Allergies*] Review of Systems Review of Systems Constitutional : No Weight loss, No Fever, No Chills ENT/Mouth : No sore throat, No Rhinorrhea Eyes: No Swelling, No Redness Cardiovascular : No Chest Pain, No SOB, NoEdema Respiratory : No Cough, No Sputum, No Wheezing Gastrointestinal : Positive Nausea, no Vomiting, no Diarrhea, positive abdominal Pain, No Hematochezia, No Melena Genitourinary : pos Dysuria, No Urinary Frequency, No Hematuria, No Urgency Musculoskeletal : No joint pain, No Myalgias, No Joint Swelling Skin : No Skin Lesions, No rash Neuro : pos Weakness, No Numbness, No Dizziness, No Headache Psych : No Anxiety/Panic, No Depression Heme/Lymph: No Bruising, No Lymphadenopathy Endocrine : No Polyuria, No Polydipsia All other systems reviewed and are negative. Physical Exam Verdana 4l Vital Signs: Verdana 4d Verdana 4d Vital Signs: Verdana 4d Verdana 4Bd Last Vital Signs Verdana 4d Manufacturing Planner New 4d Manufacturing Planner New 4d Temp 98.4 F 09/14/21 15:18 Manufacturing Planner New 4d Pulse 68 09/14/21 15:18 Manufacturing Planner New 4d Resp 16 09/14/21 15:18 BP 116/74 09/14/21 15:18 Pulse Ox 98 09/14/21 15:18 BMI result Body Mass Index 23.4 Appearance: Alert. Oriented X3. No acute distress. Eyes: Pupils equal, round and reactive to light. ENT: Pharynx normal. Neck: Normal inspection. Neck supple. CVS: Normal heart rate and rhythm. Pulses normal. Respiratory: No respiratory distress. Breath sounds normal. Abdomen: Soft and moderate RLQ pain no rebound no guarding Skin: Skin warm and dry. pale skin color. Normal skin turgor. Extremities: No lower extremity edema. No calf ttp Neuro: Oriented X 3. No motor deficit. No sensory deficit. Course Course Course Narrative: still with severe pain - IV morphine ordered US ordered to r/o torsion negative workup did discuss findings with Dr. Diaz - possible bladder spasms will try pyrdium / emptying bladder with straight cath no other acute findings feels better after cath - will DC home MDM - Abdominal Pain MDM Narrative Medical decision making narrative: 31 yo female with hx of ovarian cysts, appendectomy here with RLQ pain s/p LEEP procedure on 09/12 has RLQ pain had pain during procedure but is not bleeding. ?Rupture of ovarian cyst vs IUD migration at this time will obtain UA, COVID swab, IVF treat pain, CT scan to evaluate for free fluid, IUD - dispo per results and findings. Lab Data Result diagrams: 09/14/21 09:08 09/14/21 09:08 Labs: Lab Results 09/14/21 09/14/21 09/14/21 Range/Units 09:08 09:08 09:08 WBC 4.2 L (4.8-10.8) X10*3/uL RBC 3.76 L (4.20-5.50) X10*6/uL Hgb 12.2 (12.0-16.0) g/dl Hct 35.9 L (37.0-47.0) % MCV 95.5 (80.0-98.0) fL MCH 32.4 (27.0-33.0) pg MCHC 34.0 (31.0-35.0) g/dl RDW 11.8 (11.0-16.0) % Plt Count 166 (160-400) X10*3/uL MPV 8.8 L (9.4-12.3) fL Immature Gran % (Auto) 0.2 (0.0-0.4) % Neut % (Auto) 55.7 (45-73) % Lymph % (Auto) 28.8 (20-40) % Sutter % (Auto) 11.0 (2-11) % Eos % (Auto) 3.6 (0-4) % Baso % (Auto) 0.7 (0-2) % Lymph # (Auto) 1.2 (1.2-4.9) X10*3/uL Sutter # (Auto) 0.5 (0.1-1.2) X10*3/uL Eos # (Auto) 0.2 (0.0-0.4) X10*3/uL Baso # (Auto) 0.0 (0.0-0.2) X10*3/uL Abs Immat Gran (auto) 0.01 (0.00-0.03) X10*3/uL Absolute Neuts (auto) 2.3 (2.0-8.3) x10*3/uL Absolute Nucleated RBC 0.000 (0.0-0.012) X10*3/uL Nucleated RBC % (auto) 0.0 (0.0-0.2) /100WBC Sodium 138 (135-145) mmol/L Potassium 4.3 (3.3-5.1) mmol/L Chloride 103 (96-108) mmol/L Carbon Dioxide 28 (22-29) mmol/L Anion Gap 11 L (12-20) BUN 10 (9-16) mg/dL Creatinine 0.85 (0.5-1.4) mg/dL Estim Creat Clear Calc 84.7 Estimated GFR > 60 Random Glucose 90 (60-115) mg/dL Lactic Acid 0.5 (0.5-2.0) mmol/L Calcium 9.7 (8.4-10.2) mg/dL Magnesium 2.0 (1.6-2.6) mg/dL Total Bilirubin 0.6 (0.0-1.0) mg/dL Direct Bilirubin 0.2 (0.0-0.5) mg/dL AST 10 (5-31) U/L ALT 8 (0-31) U/L Alkaline Phosphatase 30 L (39-117) U/L Total Protein 7.4 (6.5-8.0) g/dL Albumin 4.7 (3.5-5.0) g/dL Lipase 7 L (8-78) U/L Beta HCG, Quant mIU/mL Urine Color Urine Appearance Urine pH (5.0-8.0) Ur Specific [place] (1.005-1.025) Urine Protein (NEG-TRACE) MG/DL Urine Glucose (UA) (NEG) MG/DL Urine Ketones (NEG) MG/DL Urine Blood (NEG) Urine Nitrite (NEG) Ur Leukocyte Esterase (NEG) Urine RBC (0) /HPF Urine WBC (0-4) /HPF Ur Squamous Epith Cells /LPF Urine Bacteria /LPF COVID-19 (ABHIJEET) (Negative) COVID-19 Clin Com 09/14/21 09/14/21 09/14/21 Range/Units 09:08 09:36 10:50 WBC (4.8-10.8) X10*3/uL RBC (4.20-5.50) X10*6/uL Hgb (12.0-16.0) g/dl Hct (37.0-47.0) % MCV (80.0-98.0) fL MCH (27.0-33.0) pg MCHC (31.0-35.0) g/dl RDW (11.0-16.0) % Plt Count (160-400) X10*3/uL MPV (9.4-12.3) fL Immature Gran % (Auto) (0.0-0.4) % Neut % (Auto) (45-73) % Lymph % (Auto) (20-40) % Sutter % (Auto) (2-11) % Eos % (Auto) (0-4) % Baso % (Auto) (0-2) % Lymph # (Auto) (1.2-4.9) X10*3/uL Sutter # (Auto) (0.1-1.2) X10*3/uL Eos # (Auto) (0.0-0.4) X10*3/uL Baso # (Auto) (0.0-0.2) X10*3/uL Abs Immat Gran (auto) (0.00-0.03) X10*3/uL Absolute Neuts (auto) (2.0-8.3) x10*3/uL Absolute Nucleated RBC (0.0-0.012) X10*3/uL Nucleated RBC % (auto) (0.0-0.2) /100WBC Sodium (135-145) mmol/L Potassium (3.3-5.1) mmol/L Chloride (96-108) mmol/L Carbon Dioxide (22-29) mmol/L Anion Gap (12-20) BUN (9-16) mg/dL Creatinine (0.5-1.4) mg/dL Estim Creat Clear Calc Estimated GFR Random Glucose (60-115) mg/dL Lactic Acid (0.5-2.0) mmol/L Calcium (8.4-10.2) mg/dL Magnesium (1.6-2.6) mg/dL Total Bilirubin (0.0-1.0) mg/dL Direct Bilirubin (0.0-0.5) mg/dL AST (5-31) U/L ALT (0-31) U/L Alkaline Phosphatase (39-117) U/L Total Protein (6.5-8.0) g/dL Albumin (3.5-5.0) g/dL Lipase (8-78) U/L Beta HCG, Quant < 2 mIU/mL Urine Color YELLOW Urine Appearance CLEAR Urine pH 6.5 (5.0-8.0) Ur Specific [place] <= 1.005 (1.005-1.025) Urine Protein NEG (NEG-TRACE) MG/DL Urine Glucose (UA) NEG (NEG) MG/DL Urine Ketones NEG (NEG) MG/DL Urine Blood TRACE (NEG) Urine Nitrite NEG (NEG) Ur Leukocyte Esterase NEG (NEG) Urine RBC 0-2 (0) /HPF Urine WBC 0 (0-4) /HPF Ur Squamous Epith Cells 2+ /LPF Urine Bacteria TRACE /LPF COVID-19 (ABHIJEET) Negative (Negative) COVID-19 Clin Com See Note Discharge Plan Discharge Clinical Impression: Pelvic pain, Bladder spasms Patient Disposition: Home, Self-Care Instructions: Pelvic Pain (ED) Additional Instructions: return to ED for any worsening symptoms or concerns Anteflexed anteverted uterus without focal lesion. ? IUD is in correct position within the endometrial cavity. ? Bilateral ovarian cysts. There are 2 echogenic areas in the left ovary question calcifications. There is a punctate calcification seen in the left ovary. There is no CT evidence for acute abnormality within the abdomen or pelvis.? ? Fleischner guidelines were followed. 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 Prescriptions: New cyclobenzaprine 10 mg tablet 10 mg PO TID PRN (Reason: muscle spasm) Qty: 20 0RF ondansetron 4 mg tablet,disintegrating 4 mg PO Q8H PRN (Reason: nausea and vomiting) Qty: 20 0RF nitrofurantoin monohyd/m-cryst [Macrobid] 100 mg capsule 100 mg PO BID 5 Days Qty: 10 0RF Rx Instructions: must administer with a meal/food No Action dicyclomine 20 mg tablet 20 mg PO TID 30 Days Qty: 90 1RF bupropion HCl 300 mg tablet extended release 24 hr 1 tab PO QAM 0RF Trintellix 20 mg tablet 1 tab PO QAM 0RF calcium carbonate [Calcium 500] 500 mg calcium (1,250 mg) tablet,chewable 500 mg PO BID 0RF omeprazole 40 mg capsule,delayed release(DR/EC) 40 mg PO DAILY 0RF cholecalciferol (vitamin D3) 10 mcg (400 unit) tablet 10 mcg PO DAILY 0RF multivitamin Tablet 1 tab PO DAILY 0RF calcium carbonate-vitamin D3 [Calcium 600 with Vitamin D3] 600 mg(1,500mg) - 500 unit capsule See Rx Instructions PO .COMPLEX 30 Days Qty: 30 3RF Rx Instructions: 600 mg PO daily; fluticasone propionate 220 mcg/actuation HFA aerosol inhaler 1 puff inhalation TID 30 Days Qty: 12 1RF Rx Instructions: Use three times a day for 1 month Then twice daily for 1 month Then once a day for 1 month Stand Alone Forms: Work/School Release [facility] Past Medical History Attestation statement: The following information was validated with the patient. Medical History Anxiety Depression Disease of Bartholin's gland, unspecified (~2014) Eosinophilic esophagitis Surgical History History of ankle surgery History of appendectomy (~2001) History of (~2010) History of (~2018) History of colonoscopy (~2007) History of esophagogastroduodenoscopy (EGD) Hx of breast lump removal (~2002) Hx of endoscopy Family History Family History Father Family history of high blood pressure Mother Family history of high blood pressure Maternal Grandfather History of esophageal cancer Social History Social History Household Members: Spouse and Children Alcohol intake: current Alcohol intake frequency: does not drink Patient Tobacco Use Status: Former Tobacco user Quit Date: 6 yrs ago Use of substances other than those prescribed or required for medical reasons: No Advance Directives: No Advance Directives Information Provided: Yes Patient : No (Last UA preg on 09/12- Negative) Current occupational status: employed Current occupation: Works at [employer] [place] Inpatient Psyche with Dr Swanson - Addiction Medicine/substance
[2021-09-14 08:58] VITALS: BP 116/74; PULSE 77; RESP 16; TEMP 36.8; O2SAT 100
[2021-09-14] MEDS: 0.9 % Sodium Chloride 1,000 ML 999 ML IVCONT (09:11)
[2021-09-14 09:12] LABS: MANUAL DIFF FLAG NO
[2021-09-14 09:13] LABS: Basophils Percent Auto 0.7 % (0-2); Eosinophils Absolute Auto 0.2 X10*3/uL (0.0-0.4); Eosinophils Percent Auto 3.6 % (0-4); Hematocrit 35.9 % (37.0-47.0); Hemoglobin 12.2 g/dl (12.0-16.0); Imm Gran Abs Auto 0.01 X10*3/uL (0.00-0.03); Imm Gran Pct Auto 0.2 % (0.0-0.4); Lymphocytes Absolute Auto 1.2 X10*3/uL (1.2-4.9); Lymphocytes Percent Auto 28.8 % (20-40); Mean Corpuscular Hemoglobin 32.4 pg (27.0-33.0); Mean Corpuscular Volume 95.5 fL (80.0-98.0); Mean Platelet Volume 8.8 fL (9.4-12.3); Monocytes Absolute Auto 0.5 X10*3/uL (0.1-1.2); Neutrophils Absolute Auto 2.3 x10*3/uL (2.0-8.3); Neutrophils Percent Auto 55.7 % (45-73); Platelet Count 166 X10*3/uL (160-400); Red Blood Count 3.76 X10*6/uL (4.20-5.50); Red Cell Distribution Width 11.8 % (11.0-16.0); White Blood Count 4.2 X10*3/uL (4.8-10.8)
[2021-09-14] MEDS: Ketorolac Tromethamine 30 MG/ML VIAL 15 MG IVPUSH (09:18)
[2021-09-14] MEDS: ondansetron HCL 4 MG/2 ML VIAL IVPUSH (09:19)
[2021-09-14] MEDS: Famotidine/PF 20 MG/2 ML VIAL IVPUSH (09:19)
[2021-09-14 09:34] LABS: Lactic Acid 0.5 mmol/L (0.5-2.0)
--- NOTE | 2021-09-14 09:36 | PC.NURSE ---
pt reports that she had a LEEP done 2 days ago and has been experiencing 8/10 pelvic pain since. she reports nausea as well. no spotting or bleeding reported. pt's vss. iv placed, fluids hung, meds given as documented.
[2021-09-14 09:41] LABS: Alanine Aminotransferase 8 U/L (0-31); Albumin Level 4.7 g/dL (3.5-5.0); Alkaline Phosphatase 30 U/L (39-117); Anion Gap 11 (12-20); Aspartate Amino Transferase 10 U/L (5-31); Bilirubin Direct 0.2 mg/dL (0.0-0.5); Bilirubin Total 0.6 mg/dL (0.0-1.0); Blood Urea Nitrogen 10 mg/dL (9-16); Calcium 9.7 mg/dL (8.4-10.2); Carbon Dioxide 28 mmol/L (22-29); Chloride 103 mmol/L (96-108); Creatinine Clr Calc Pharmacy 84.7; Estimated Glomerular Filt Rate > 60; Glucose Random 90 mg/dL (60-115); Lipase 7 U/L (8-78); Potassium 4.3 mmol/L (3.3-5.1); Sodium 138 mmol/L (135-145); Total Protein 7.4 g/dL (6.5-8.0)
[2021-09-14 09:44] LABS: HCG Quantitative < 2 mIU/mL
[2021-09-14 10:03] LABS: COVID-19 Test Negative (Negative)
[2021-09-14] MEDS: iohexoL 350 MG/ML 100 ML INFUS..BTL 85 ML IV (10:33)
[2021-09-14 10:59] LABS: Appearance Urine CLEAR; Color Urine YELLOW; Glucose Urine UA NEG (NEG); Leukocyte Esterase Urine NEG (NEG); Nitrite Urine NEG (NEG); PH 6.5 (5.0-8.0); Specific Gravity - Urine <= 1.005 (1.005-1.025); UACC Culture Trigger NO; Urine Blood TRACE (NEG); Urine Ketones NEG (NEG); Urine Protein NEG (NEG-TRACE)
[2021-09-14 11:07] LABS: Bacteria Urine TRACE /LPF; RBC Urine 0-2 /HPF (0); Squamous Epithelial Cell Urine 2+ /LPF; WBC Urine 0 /HPF (0-4)
[2021-09-14] MEDS: Morphine Sulfate 4 MG/ML CARTRIDGE IVPUSH (11:07)
[2021-09-14] MEDS: Phenazopyridine HCL 100 MG TABLET PO (13:18)
[2021-09-14 15:18] VITALS: BP 116/74; PULSE 68; RESP 16; TEMP 36.9; O2SAT 98
== END 2021-09-14 15:49 | disposition home or self-care (01) ==
PROVIDERS: Emergency Provider Emergency Medicine
DX: N32.89 Other specified disorders of bladder (principal); R10.2 Pelvic and perineal pain; Z20.822 Contact with and (suspected) exposure to COVID-19
CPT/HCPCS: 36415; 51701; 74177; 76830; 76856; 80048; 80076; 81001; 83605; 83690; 83735; 84702; 85025; 87635; 93975; 96361; 96374; 96375; 99284; 99285; J1885; J2270; J2405; Q9967

== ENCOUNTER 2021-10-05 08:30 | Outpatient (REF) | payer OTHER, SELFPAY ==
--- NOTE | ~2021-10-05 | CT_ITS ---
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 COMPARISON: 06/15/2021 MRI. TECHNIQUE: Volumetric CT imaging of the facial bones was done with multiplanar reformatted reconstructions. This CT examination was performed using dose optimization techniques as appropriate, variously including the following: *Automated exposure control *Adjustment of mA and/or kV according to patient size (this includes techniques or standardized protocols for targeted exams where dose is matched to indication/reason for exam; i.e. extremities or head) *Use of iterative reconstruction technique DLP: 111 mGy-cm FINDINGS: The maxillofacial bones, nasal bones and mandible are intact. The bony skull base is grossly intact. There is moderate left-sided TMJ arthropathy. The mastoids and middle ear cavities are unopacified. The visualized paranasal sinuses are well pneumatized, with a probable small retention cyst or mucosal thickening in the left maxillary sinus. Nasal septum is deviated to the right. Clear nasal cavity. Nasopharyngeal soft tissues are symmetric and within normal limits. Redemonstrated is a calcified stylohyoid ligament on the right which extends down to the level of the lingual tonsils, just above the level of the hyoid bone. There is also a calcified left-sided stylohyoid ligament which does not extend as far caudally. There is a transverse radiolucency in the midportion of the calcified right stylohyoid ligament with a similar-appearing transverse radiolucency in the midportion of the left calcified stylohyoid ligament, possibly developmental in nature. Otherwise, the visualized soft tissue structures of the extracranial head and neck are grossly unremarkable within the limitations of the study. There is limited visualization of the visualized intracranial structures. No acute process. Visualized orbital soft tissues structures appear grossly unremarkable. CT/CT facial bones wo con IMPRESSION: 1. Elongated, calcified stylohyoid ligaments bilaterally, right more than left with the right side extending down to the level of the right glossotonsillar sulcus, just above the hyoid bone. 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 2. Left-sided TMJ arthrosis noted.
== END 2021-10-05 08:31 | disposition home or self-care (01) ==
LOC: HO.CT 08:30
PROVIDERS: Visit Provider Student in an Organized Health Care Education/Training Program
DX: M24.20 Disorder of ligament, unspecified site (principal)
CPT/HCPCS: 70486

== ENCOUNTER 2022-06-21 15:26 | Outpatient (REF) | payer OTHER, SELFPAY ==
--- NOTE | ~2022-06-21 | MR_ITS ---
EXAMINATION: MRI ANKLE WITHOUT CONTRAST, RIGHT CLINICAL INFORMATION: Right ankle pain and instability. Surgery in 2006. COMPARISON: None TECHNIQUE: Multisequence MR imaging of the right ankle was obtained without contrast on a high-field strength scanner. FINDINGS: BONE AND ARTICULAR CARTILAGE: Metallic artifact associated with the lateral malleolus consistent with prior lateral ligament repair. No edema or evidence of hardware complication. No acute fracture or dislocation. No talar osteochondral lesion. No concerning lytic or blastic osseous lesion. ACHILLES TENDON: Mild edema anterior to the Achilles tendon consistent with mild peritendinitis. No measurable tendon tear. OTHER TENDONS: Trace fluid within the peroneal brevis and peroneal longus tendon sheaths which could represent normal variation versus minimal tenosynovitis. No transverse tendon tear or tendon retraction. LIGAMENTS: Attenuation and irregularity of the anterior and posterior talofibular ligaments as well as the calcaneofibular ligament consistent with remote sprain/partial tears. No edema to suggest acute injury. JOINT FLUID AND SOFT TISSUES: Small tibiotalar and trace posterior subtalar joint effusions. PLANTAR FASCIA: Intact. SINUS TARSI AND TARSAL TUNNEL: Patent. MR/MR ankle RT wo con IMPRESSION: 1. Mild Achilles peritendinitis without a measurable tendon tear. 2. Trace fluid within the peroneal brevis and peroneal longus tendon sheaths which could represent normal variation versus minimal tenosynovitis. No transverse tendon tear or tendon retraction. 3. Remote sprain/partial tears of the anterior talofibular, posterior talofibular, and calcaneofibular ligaments. No evidence of acute ligament injury. Postsurgical change within the lateral malleolus. 4. Small tibiotalar and trace posterior subtalar joint effusions.
== END 2022-06-21 15:27 | disposition home or self-care (01) ==
LOC: HO.MRI 15:26
PROVIDERS: Visit Provider Orthopaedic Surgery Foot and Ankle Surgery
DX: M25.571 Pain in right ankle and joints of right foot (principal); R60.0 Localized edema
CPT/HCPCS: 73721

== ENCOUNTER 2022-07-25 10:11 | Outpatient (REF) | payer OTHER, SELFPAY ==
[2022-07-28 23:33] LABS: TS Negative Control Passed; TS Panel A 0; TS Panel B 0; TS Positive Control Passed; TSpotTB Negative (Negative)
== END 2022-07-25 10:12 | disposition home or self-care (01) ==
LOC: HO.LAB 10:11
PROVIDERS: Visit Provider Physician Assistant
DX: Z11.1 Encounter for screening for respiratory tuberculosis (principal)
CPT/HCPCS: 36415; 86481

== ENCOUNTER 2025-05-03 09:02 | Outpatient (REF) | payer BC, SELFPAY ==
[2025-05-03 11:35] LABS: MANUAL DIFF FLAG NO
[2025-05-03 11:41] LABS: Hematocrit 37.8 % (37.0-47.0); Hemoglobin 13.0 g/dl (12.0-16.0); Imm Gran Abs Auto 0.02 X10*3/uL (0.00-0.03); Imm Gran Pct Auto 0.4 % (0.0-0.4); Lymphocytes Absolute Auto 1.6 X10*3/uL (1.2-4.9); Mean Corpuscular HGB Conc 34.4 g/dl (31.0-35.0); Mean Corpuscular Hemoglobin 32.7 pg (27.0-33.0); Mean Corpuscular Volume 95.2 fL (80.0-98.0); NRBC Abs Auto 0.000 X10*3/uL (0.0-0.012); NRBC Pct Auto 0.0 /100WBC (0.0-0.2); Platelet Count 260 X10*3/uL (160-400); Red Blood Count 3.97 X10*6/uL (4.20-5.50); White Blood Count 5.5 X10*3/uL (4.8-10.8)
[2025-05-03 12:58] LABS: Folate 7.1 ng/mL (> or = 4.0); Vitamin B12 378 pg/mL (200-900)
[2025-05-03 13:20] LABS: Anion Gap 11 (12-20)
[2025-05-03 13:25] LABS: Alanine Aminotransferase 23 U/L (0-31); Albumin Level 5.0 g/dL (3.5-5.0); Alkaline Phosphatase 60 U/L (39-117); Aspartate Amino Transferase 21 U/L (5-31); Blood Urea Nitrogen 13 mg/dL (9-16); Calcium 9.6 mg/dL (8.4-10.2); Carbon Dioxide 28 mmol/L (22-29); Chloride 106 mmol/L (96-108); Cholesterol 255 mg/dL (<200); Estimated Glomerular Filt Rate > 60; HDL Cholesterol 66 mg/dL (>40); Potassium 4.3 mmol/L (3.3-5.1); Sodium 141 mmol/L (135-145); Total Protein 7.7 g/dL (6.5-8.0); Triglycerides 107 mg/dL (<150)
== END 2025-05-03 09:03 | disposition home or self-care (01) ==
LOC: HO.WFDLDS 09:02
PROVIDERS: PCP Internal Medicine; Visit Provider Internal Medicine
DX: Z00.00 Encounter for general adult medical examination without abnormal findings (principal); Z13.0 Encounter for screening for diseases of the blood and blood-forming organs and certain disorders involving the immune mechanism; Z13.228 Encounter for screening for other metabolic disorders; Z13.220 Encounter for screening for lipoid disorders; F33.41 Major depressive disorder, recurrent, in partial remission; F41.9 Anxiety disorder, unspecified; R35.89 Other polyuria
CPT/HCPCS: 36415; 80053; 80061; 82607; 82746; 83036; 84443; 85025; 96127

== ENCOUNTER 2025-05-03 09:02 | Outpatient (AMB) | payer OTHER, SELFPAY ==
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
[2025-05-03 09:12] VITALS: BP 110/78; PULSE 70; RESP 15; TEMP 36.4; O2SAT 98; BMI 31.0
--- OUTSIDE RECORDS SUMMARY | 2025-05-03 10:27 | XMS_ITS | Clinical Summary ---
Author Organization [facility] [address] [facility] lding Address [address] [place] [address] Phone Care Team Providers Care Rubber Extrusion Machine Operator Name Role Phone Braydon Prabhakar DO Primary Care Provider + Allergies No known active allergies Medications buPROPion XL (WELLBUTRIN XL) 300 mg 24 hr tablet Take 300 mg by mouth daily. Active busPIRone (BUSPAR) 10 mg tablet Take 10 mg by mouth. 2 tablets twice daily Active traZODone (DESYREL) 50 mg tablet Take 10 tablets (500 mg total) by mouth at bedtime. Active vortioxetine (TRINTELLIX) 20 mg tablet Take by mouth. 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 Colposcopy 09/07/2019: Mild acetowhite spot at 5:00; endocervix appears clear; biopsy not taken. Dyshidrotic eczema 08/24/2019 Overview (10/06/2024): On hands per derm eval 08/19/2019 Asthma 03/29/2008 Depressive disorder 02/17/2008 Immunizations Name Administration Dates Next Due H1N1 Inj Preservative Free 08/15/2009 HPV, Quadrivalent 01/03/2009,08/24/2008,03/29/20 08 Influenza trivalent, with pr eservative (Fluzone; Afluria) 6mo and older 08/15/2009 Tdap Tetanus diptheria acell ular pertussis (Boostrix; Adacel) 7yo and older 08/15/2009 Surgical History Surgery Date Site/Laterality Comments BREAST LUMPECTOMY 2002 PROCEDURE: HISTORICAL BREAST LUMPECTOMY ANKLE SURGERY 2003 PROCEDURE: HISTORICAL ANKLE SURGERY SECTION PROCEDURE: ID DELIVERY ONLY; COMMENT: x 2 COLONOSCOPY PROCEDURE: HISTORICAL COLONOSCOPY OTHER SURGICAL HISTORY 08/2020 PROCEDURE: ---- OTHER ----; COMMENT: balloon dilation mid and distal esophagus Medical History Medical History Date Comments Depression DX:Depression; C OMMENT: since 7th grade; h/o cutting; suicide attempt x 1 in teens Asthma DX:Asthma; COMME NT: as a young child Headache(784.0) DX:Headache(784. 0); COMMENT: ?migraine; responds to Inderal; w/ juanjose-vu IBS (irritable bowel syndrome) D X:IBS (irritable bowel syndrome) Hemorrhoids DX:Hemorrhoids Abnormal cytological finding in specimen from cervix DX:Abnormal cytological find ing in specimen from cervix Family History Medical History Relation Name Comments Hypertension Father Esophageal cancer Maternal Grandfather Brain Aneurysm Maternal Grandmother Hypertension Mother Diabetes Paternal Grandmother Breast cancer Neg Hx Colon cancer Neg Hx Crohn's disease Neg Hx Ovarian cancer Neg Hx Prostate cancer Neg Hx Ulcerative colitis Neg Hx Uterine cancer Neg Hx Relation Name Status Comments Brother Alive age 21 healthy Father Alive htn, asthma Maternal Grandfather diabete s Maternal Grandmother unknown Mother Alive htn Paternal Grandfather unknown Paternal Grandmother diabete s Social History Tobacco Use Types Packs/Day Years Used Date Smoking Tobacco: Former Smokeless Tobacco: Never Alcohol Use Standard Drinks/Week Comments Yes 4.2 (1 standard drink = 0.6 oz p ure alcohol) Comments Unknown Sex and Gender Information Value Date Recorded Sex Assigned at Not on file Legal Sex Female 2:55 AM EST Gender Identity Not on file Sexual Orientation Not on file Obstetrics History Last Filed Vital Signs Vital Sign Reading Time Taken Comments Blood Pressure 127/82 12/24/2023 1:51 PM EDT Sitting R Arm Pulse 78 12/24/2023 1:51 PM EDT Temperature - - Respiratory Rate - - Oxygen Saturation - - Inhaled Oxygen Concentration - - Weight 86 kg (189 lb 9.6 oz) 12/24/2023 1:51 PM EDT Height 165.1 cm (5' 5 ) 12/24/2023 1:51 PM EDT Body Mass Index 31.55 12/24/2023 1:51 PM EDT Plan of Treatment Health Maintenance Due Date Last Done Comments Hepatitis B Vaccines (1 of 3 - 19+ 3-dose series) 2007 Pneumococcal Vaccine: Pediatrics (0 to 5 Years) and At-Risk Patients (6 to 49 Years) (1 of 2 - PCV) 2007 DTaP,Tdap,and Td Vaccines (2 - Td or Tdap) 08/15/2019 08/15/2009 Hepatitis C Screening 07/19/2022 Social Influencers of Health Screening 07/19/2022 Depression Screening 08/11/2024 COVID-19 Vaccine (1 - 2023-2 5 season) 2025 Influenza Vaccine (#1) 2025 0, 08/15/2009 Cervical Cancer Screening: HPV 12/23/2028 12/24/2023 HPV Vaccines Completed 01/03/2009, 08/24/2008, 03/29/2008 HIV Screening Completed 02/15/2010 HIB Vaccines Aged Out No longer eligi ble based on patient's age to complete this topic Hepatitis A Vaccines Aged Out No long er eligible based on patient's age to complete this topic IPV Vaccines Aged Out No longer eligi ble based on patient's age to complete this topic MMR Vaccines Aged Out No longer eligi ble based on patient's age to complete this topic Meningococcal ACWY Vaccine Aged Out N o longer eligible based on patient's age to complete this topic Meningococcal B Vaccine Aged Out No l onger eligible based on patient's age to complete this topic RSV Immunization Patients Under 20 months Aged Out No longer eligible b ased on patient's age to complete this topic Varicella Vaccines Aged Out No longer eligible based on patient's age to complete this topic Procedures Procedure Name Priority Date/Time Associated Diagnosis Comments HPV Routine 12/24/2023 HIV SCREENING Routine 02/15/2010 from Last 3 Months or Most Recently Relevant to Health Maintenance Results * Cervical Cancer Screening: HPV (12/24/2023) Cervical Cancer Screening: HPV negative,a bstracted Historical Provider HEALTH MAINTENANCE Final Result * HIV Screening (02/15/2010) HIV Screening ABSTRACTED Historical Provider HEALTH MAINTENANCE Final Result from Last 3 Months or Most Recently Relevant to Health Maintenance Insurance Care Teams Rubber Extrusion Machine Operator Relationship Specialty Start Date End Date Braydon Prabhakar DO [facility] [address] [place] [address] [phone] PCP - General Internal Medicine 04/09/21
--- OUTSIDE RECORDS SUMMARY | 2025-05-03 10:27 | XMS_ITS | Clinical Summary ---
Author Organization [facility] Address [address] [place] [address] Care Team Providers Care Soaping Machine Back Tender Name Role Phone Unavailable Primary Care Provider Unavailabl e Social History Tobacco Use Types Packs/Day Years Used Date Smoking Tobacco: Never Assessed Sex and Gender Information Value Date Recorded Sex Assigned at Not on file Gender Identity Not on file Sexual Orientation Not on file Plan of Treatment Not on file
== END 2025-05-03 09:35 | disposition home or self-care (01) ==
LOC: HO.HMCFM 09:03
PROVIDERS: PCP Internal Medicine; Visit Provider Internal Medicine
DX: Z00.00 Encounter for general adult medical examination without abnormal findings (principal); F41.9 Anxiety disorder, unspecified; F33.41 Major depressive disorder, recurrent, in partial remission